=== PATIENT | female | born 1965 | race Caucasian/White ===

== ENCOUNTER 2021-09-07 14:22 | Outpatient (CLI) | payer OTHER, SELFPAY | END 2021-09-07 14:23 | disposition home or self-care (01) | PROVIDERS: PCP Family Medicine; Visit Provider Obstetrics & Gynecology | DX: N93.9 Abnormal uterine and vaginal bleeding, unspecified (principal); N85.2 Hypertrophy of uterus | CPT/HCPCS: 36415; 84443 ==

== ENCOUNTER → 2021-09-15 15:34 | Outpatient (CLI) | payer OTHER, SELFPAY ==
--- NOTE | ~2021-09-15 | US_ITS ---
EXAMINATION: US pelvic complete w TV DATE: 09/15/2021 15:57 INDICATION: Uterine hypertrophy. Abnormal uterine bleeding. Comparison:Ultrasound dated 03/03/2018 TECHNIQUE: Multiple transabdominal and endovaginal sonographic images of the pelvis performed. FINDINGS: The uterus measures 10.4 x 5 x 8.6 cm. There are multiple uterine fibroids, largest measuri ng 5.8 x 5.6 x 5.5 cm. The endometrial complex measures 6 mm. The right ovary is not visualized. Left ovary measures 2.9 x 2.8 x 2.8 cm with normal vascular flow. There is no free fluid in the pelvis. There are no abnormal masses seen on either side. IMPRESSION: 1. Enlarged fibroid uterus. Reviewed, dictated and finalized at location A. IMPRESSION: 1. Enlarged fibroid uterus.
== END ==
PROVIDERS: Visit Provider Obstetrics & Gynecology
DX: N85.2 Hypertrophy of uterus (principal); D25.9 Leiomyoma of uterus, unspecified
CPT/HCPCS: 76830; 76856

== ENCOUNTER → 2023-08-22 14:49 | Outpatient (CLI) | payer OTHER, SELFPAY ==
--- NOTE | ~2023-08-22 | US_ITS ---
EXAMINATION: US pelvic complete w TV DATE: 08/22/2023 15:21 INDICATION: Laminectomy of the uterus, unspecified TECHNIQUE: Multiple transabdominal and endovaginal sonographic images of the pelvis were obtained. COMPARISON: 09/15/2021 FINDINGS: The uterus measures 10.9 7.3 x 8.7 cm. There are multiple uterine fibroids. The largest mitzi sures 6.4 x 5.3 x 6.3 cm in the posterior uterine body. The endometrial complex measures 7 mm. The le ft ovary is not visualized however no left adnexal abnormality is seen. The right ovary measures 4.8 x 3.7 x 4.4 cm. There is normal vascular flow in the right ovary. There is no free fluid in the pelvi s. IMPRESSION: 1. Fibroid uterus. Reviewed, dictated and finalized at location A. IMPRESSION: 1. Fibroid uterus.
== END ==
PROVIDERS: PCP Obstetrics & Gynecology; Visit Provider Obstetrics & Gynecology
DX: D25.9 Leiomyoma of uterus, unspecified (principal)
CPT/HCPCS: 76830; 76856

== ENCOUNTER → 2023-12-10 10:26 | Outpatient (CLI) | payer OTHER, SELFPAY ==
--- NOTE | ~2023-12-10 | XR_ITS ---
XR thoracic spine 3V DATE: 12/10/2023 10:54 INDICATION: Mid back pain TECHNIQUE: AP, lateral, swimmer views COMPARISON: None FINDINGS: There is osteopenia. There is mild degenerative spurring of the thoracic spine. No fracture or dislocation or bone destruc tion is evident. The thoracic pedicles are intact. No paraspinal soft tissue thickening. IMPRESSION: Osteopenia and degenerative spurring Reviewed, dictated and finalized at location A. GENCY ROOM PHYSICIAN ASSISTANT
--- NOTE | ~2023-12-10 | XR_ITS ---
XR cervical spine 4-5V DATE: 12/10/2023 10:54 INDICATION: Left arm pain TECHNIQUE: AP, open-mouth, lateral and bilateral oblique views COMPARISON: None FINDINGS: There is straightening of the cervical spine. C1 and C2 are normally aligned and the odonto id process is intact. No fracture or dislocation or locked facet or prevertebral soft tissue swelling . No significant bony encroachment upon the neural foramina is noted. IMPRESSION: Straightening of the cervical spine Reviewed, dictated and finalized at location A. NT ANALYST
== END ==
PROVIDERS: PCP Chiropractor; Visit Provider Chiropractor
DX: M85.88 Other specified disorders of bone density and structure, other site (principal); M46.04 Spinal enthesopathy, thoracic region
CPT/HCPCS: 72050; 72072

== ENCOUNTER 2024-05-23 03:04 | Day surgery (SDC) | payer OTHER, SELFPAY ==
[2024-05-09 10:32] VITALS: BMI 30.8
[2024-05-23 06:24] VITALS: BP 132/78; PULSE 73; RESP 16; TEMP 36.3; O2SAT 99
[2024-05-23] MEDS: LACTATED RINGERS 1,000 ML 150 ML IV CONT (06:32)
--- NOTE | 2024-05-23 07:20 | PM.HPGS ---
History of Present Illness History of Present Illness Consent: Risks, benefits, and alternatives have been discussed and questions answered. Patient agrees to proceed with procedure. Chief complaint: neoplasm screening Narrative: Violette Milner is a 59 year old female here for first screening colonoscopy Review of Systems Review of Systems: All systems reviewed & are unremarkable except as noted in HPI and below PMFSH Past Medical History Medical History (Updated 05/23/24 @ 07:21 by Luke Sargent MD) Colon cancer screening History of miscarriage Seasonal allergies Family History Family History Father Hypertension Family history of elevated blood lipids Family history of diabetes mellitus in first degree relative Family history of coronary artery disease Diabetes mellitus Family history of cardiovascular disease Family history of Alzheimer's disease Mother Hypertension Family history of thoracic aortic aneurysm Sibling Family history of elevated blood lipids Other Family history of malignant neoplasm of breast Social History Social History (Updated 07/27/23 @ 08:57 by Augustina Madden MA) Smoking packs per day: 0.5 Smoking cigarettes per day: 10.0 Smoking status: Former smoker Tobacco type: cigarettes Second hand tobacco smoke exposure: No Smoking end date: 11/21/02 Alcohol intake: current Substance use: never Lack of Transportation: No Lack of Food: Never True Current Housing: I Have Housing Concerned About Future Housing: No Difficulty Paying Gas/Electric Bills: No Difficulty Paying for Meds: No Currently Unemployed: No Education: Master's Degree or Higher Difficulty w/ Childcare or Family Care: No Living arrangements: with family Occupation/Education: occupation Gender identity (if verbalized by the patient): Female Sexual Orientation (if Verbalized by the Patient): Straight or Heterosexual Spiritual care concerns: No Meds Home Medications and Allergies Home Medications Medication Instructions Recorded Confirmed Type albuterol sulfate 90 mcg/actuation 1 puff inhalation Q4H PRN 10/09/19 05/09/24 History aerosol inhaler (Ventolin HFA) Shortness Of Breath Or Wheezing loratadine 10 mg tablet (Claritin) 10 mg PO DAILY 07/27/23 05/09/24 History Allergies Allergy/AdvReac Type Severity Reaction Status Date / Time No Known Allergies Allergy Mild Verified 05/23/24 06:23 Vital Signs Vital Signs - 24 hr 05/23/24 06:24 Temperature 97.4 F L Pulse Rate 73 Respiratory Rate 16 Blood Pressure 132/78 Pulse Oximetry 99 Oxygen Delivery Room Air Exam Const: General: comfortable and no acute distress HENMT: Face/Nose/Sinus: Normal nares present Eyes: General: appearance normal, both eyes and all related structures Neck: Neck: no JVD Resp: Auscultation: clear to auscultation bilaterally Cardio: Rate: regular rate Rhythm: regular rhythm GI: Inspection: non-distended GI Palp: Yes Soft to palpation Skin: General skin exam: normal color Neuro: General: gait normal Speech: normal speech Extrem: General: normal to inspection Psych: Mental Status: mental status grossly normal Assessment and Plan Assessment and plan (1) Colon cancer screening: Code(s): Z12.11 - Encounter for screening for malignant neoplasm of colon Status: Acute Assessment and Plan: colonoscopy
[2024-05-23 07:46] VITALS: BP 116/74; PULSE 67; RESP 16; O2SAT 97
[2024-05-23 07:56] VITALS: BP 125/85; PULSE 67; RESP 20; O2SAT 98
[2024-05-23 08:06] VITALS: BP 138/86; PULSE 69; RESP 18; O2SAT 98
--- NOTE | 2024-05-28 14:31 | WPDANESEPPF ---
Anes - Initial Pre Proc Eval Procedure: Operation Date: 05/23/24 07:30 Proposed Procedures p Screening Colonoscopy - Luke Sargent MD Date/Time: 05/28/24 14:31 Surgeon: Luke Sargent MD Pre Op Diagnosis: neoplasm screening Patient Data Age: 59 Gender: F Height: 1.6 m Weight: 80.3 kg Last Vital Signs Temp 97.4 F L 05/23/24 06:24 Pulse 69 05/23/24 08:06 Resp 18 05/23/24 08:06 BP 138/86 05/23/24 08:06 Pulse Ox 98 05/23/24 08:06 O2 Del Method Room Air 05/23/24 08:06 Allergies Allergy/AdvReac Type Severity Reaction Status Date / Time No Known Allergies Allergy Mild Verified 05/23/24 06:23 Home Medications Medication Instructions Recorded Confirmed Type albuterol sulfate 90 mcg/actuation 1 puff inhalation Q4H PRN 10/09/19 05/09/24 History aerosol inhaler (Ventolin HFA) Shortness Of Breath Or Wheezing loratadine 10 mg tablet (Claritin) 10 mg PO DAILY 07/27/23 05/09/24 History Patient hx anesthesia problems: none Family hx anesthesia problems: none Results Review: All pre-operative results and documents have been reviewed as part of the pre-operative evaluation. [facility] Past Medical History Medical History (Updated 05/23/24 @ 07:21 by Luke Sargent MD) Colon cancer screening History of miscarriage Seasonal allergies Family History Family History Father Hypertension Family history of elevated blood lipids Family history of diabetes mellitus in first degree relative Family history of coronary artery disease Diabetes mellitus Family history of cardiovascular disease Family history of Alzheimer's disease Mother Hypertension Family history of thoracic aortic aneurysm Sibling Family history of elevated blood lipids Other Family history of malignant neoplasm of breast Social History Social History (Updated 07/27/23 @ 08:57 by Augustina Madden MA) Smoking packs per day: 0.5 Smoking cigarettes per day: 10.0 Smoking status: Former smoker Tobacco type: cigarettes Second hand tobacco smoke exposure: No Smoking end date: 11/21/02 Alcohol intake: current Substance use: never Lack of Transportation: No Lack of Food: Never True Current Housing: I Have Housing Concerned About Future Housing: No Difficulty Paying Gas/Electric Bills: No Difficulty Paying for Meds: No Currently Unemployed: No Education: Master's Degree or Higher Difficulty w/ Childcare or Family Care: No Living arrangements: with family Occupation/Education: occupation Gender identity (if verbalized by the patient): Female Sexual Orientation (if Verbalized by the Patient): Straight or Heterosexual Spiritual care concerns: No Anes - Eval Final PreProcedure Day of Procedure 05/28/24 14:31 Patient weight: normal Heart: regular rate and rhythm Lungs: clear to auscultation Airway: Mallampati scale class II Neurological: alert and oriented Last oral intake: >/= 8 hours ASA classification: II Emergent: no Anesthetic plan: proceed Anesthesia type and monitoring: general GIVS and standard monitoring Results Review: All pre-operative results and documents have been reviewed as part of the pre-operative evaluation. Informed Consent: The patient's anesthetic plan and its attendant risks and benefits were discussed with the patient/family/POA. Questions were solicited and answers provided to the satisfaction of the patient/family/POA.
== END 2024-05-23 08:18 | disposition home or self-care (01) ==
PROVIDERS: PCP Family Medicine Sports Medicine; Visit Provider Internal Medicine Gastroenterology
PROC: 0DJD8ZZ Inspection of Lower Intestinal Tract, Via Natural or Artificial Opening Endoscopic (ICD-10-PCS; CPT 45378; principal; 2024-05-23 07:30)
DX: Z12.11 Encounter for screening for malignant neoplasm of colon (principal); K64.8 Other hemorrhoids; J30.2 Other seasonal allergic rhinitis; Z79.51 Long term (current) use of inhaled steroids; Z87.891 Personal history of nicotine dependence; Z80.3 Family history of malignant neoplasm of breast; Z82.49 Family history of ischemic heart disease and other diseases of the circulatory system
CPT/HCPCS: 45378; J2704; J7120

== ENCOUNTER 2025-01-29 10:04 | Outpatient (CLI) | payer OTHER, SELFPAY ==
--- NOTE | ~2025-01-29 | DEXA_ITS ---
Bone Density Report Name: LINSEY OWEN Age: 59 Sex: Female Ethnicity: White Date of : 1965 Indication: screening for osteoporosis; asthma or emphysema; Referring Provider: DAVID MARCELO Study: Bone densitometry was performed. Exam Date: January 29, 2025 Accession number: [id number] Bone Density: Region BMD T-score Z-score Classification AP Spine(L1-L4) 0.895 -1.4 -0.1 Osteopenia Femoral Neck (Left) 0.836 -0.1 1.1 Normal Total Hip (Left) 0.959 0.1 1.0 Normal Femoral Neck (Right) 0.905 0.5 1.7 Normal Total Hip (Right) 1.051 0.9 1.7 Normal Total Hip Mean 1.005 0.5 1.4 Normal World Health Organization criteria for BMD impression classify patients as: Normal (T-score at or above -1.0), Osteopenia (T-score between -1.0 and -2.5), or Osteoporosis (T-score at or below -2.5). 10-year Fracture Risk: FRAX not reported because: Premenopausal woman Clinical Information Provided by Patient: Has used the following medications: Vitamin D, Calcium Has the following medical conditions: Asthma or Emphysema Patient maximum height was 63 Drinks caffeinated beverages Onset of menses at age 12 Premenopausal Number of children 0 Impression: The patient's bone mass is within expected range for age, gender and ethnicity. Discussion: BONE DENSITY IS WITHIN EXPECTED LIMITS FOR AGE, SEX AND RACE. Bone density is within expected limits for age, sex and race at all sites measured. The patient should follow a healthful lifestyle (good nutrition with adequate calcium and vitamin D, and appropriate weight-bearing exercise). Follow-Up: Consider repeating this study in 2 to 3 years to reassess this patient's status, or sooner if there is some new clinical indication. Reported by: OFELIA on 01/29/2025 10:43:00 AM. Reviewed, dictated and finalized at location A. K[facility]LEIG[facility]
--- OUTSIDE RECORDS SUMMARY | 2025-01-29 11:20 | XMS_ITS | Referral Summary ---
Author Organization [facility] Address [address] [place] [address] Care Team Providers Care Med Admin Name Role Phone Jacob Morgan MD Unavailable [phone] Unknown, Notinfile Primary Care Provider Unavail able Encounters Date Type Department Care Team Description 01/22/2025 Results Follow-Up [facility] Primary Care at [address] [phone] Kady Martines NP 01/07/2025 8:00 AM SHIRRING MACHINE OPERATOR AUTOMATIC - 01/07/2025 11:59 PM [facility] Hospital Encounter [facility] Breast Imaging [facility] ([facility]) [address] [place] [id number] Screening mammogram, encounter for Discharge Disposition: Discharge to home or self care from Last 3 Months Allergies No known active allergies Medications diphenhydrAMINE (BENADRYL) 25 mg capsule Take 1 tablet/capsul e (25 mg total) by mouth every 6 (six) hours as needed for itching Active albuterol HFA (PROVENTIL HFA,VENTOLIN HFA,PROAIR HFA) 90 mcg/actuation inhaler Inhale 2 puffs every 6 (six) hours as needed for wheezing 54 g 2 11/17/2022 Active cetirizine (ZyrTEC) 10 mg capsule Take 10 mg by mouth daily 06/01/2024 Active omeprazole (PriLOSEC) 20 mg capsule Take 1 capsule (20 mg total) by mouth daily for 14 days Take first thing in AM on empty stomach 14 capsule 09/06/2024 Active Active Problems Problem Noted Date Diagnosed Date Borderline high cholesterol 09/15/2022 Allergy to animal dander 09/21/2021 Overview (09/15/2022): Cat and dog. Basal cell carcinoma (BCC) of left cheek 019 Sebaceous gland hyperplasia 06/09/2016 Multiple melanocytic nevi 08/06/2015 Chronic idiopathic urticaria 08/06/2015 Assessment & Plan (03/16/2024 3:59 PM CDT): Episodic issues. Monitor. This is a chronic issue that she has had. Unclear if patient is at increased risk for recurrent episodes with warm temperature exposure. She notes the recent complaint of lymphadenopathy seems to correspond to times when she is taken showers. These may be correlating diagnosis given the lymphadenopathy she reports he is somewhat transient Mild intermittent asthma without complication Seasonal allergies 01/22/2008 Resolved Problems Problem Noted Date Diagnosed Date Resolved Date Obesity (BMI 30-39.9) 05/27/20212021 Assessment & Plan (05/27/2021 2:20 PM CDT): Obesity is unchanged. Discussed the patient's BMI. The BMI is above average. BMI management plan is completed. BMI Follow-up includes: nutrition counseling, exercise counseling and education provided. BMI 31.0-31.9,adult 05/27/2021 09/15/20 Assessment & Plan (05/27/2021 2:20 PM CDT): Obesity is unchanged. Discussed the patient's BMI. The BMI is above average. BMI management plan is completed. BMI Follow-up includes: nutrition counseling, exercise counseling and education provided. Encounter to establish care 05/27/2021 09/15/2022 Assessment & Plan (05/27/2021 6:31 PM CDT): Fasting labs entered, will notify patient of results as available Colon cancer screening 05/27/202109/15 Assessment & Plan (05/27/2021 6:31 PM CDT): Will order cologuaroseann, will notify her of results as available She declines screening cscope at this time Basal cell carcinoma of skin 01/29/2020 09/15/2022 Seborrheic keratoses 06/09/2016 022 Immunizations Immunization Administration Dates Next Due Influenza, Quadrivalent, Chayo l Culture-based MDCK, Antibiotic Free, Intramuscular 10/07/2018 Influenza, Quadrivalent, Spl it, Intramuscular 09/17/2019 Influenza, Quadrivalent, Spl it, Preservative Free, Intramuscular 09/27/2023,09/15/2022,08/17/2017 Influenza, Trivalent, IM (MDV) 09/16/2021 Influenza, Trivalent, Preser vative Free, Intramuscular 09/19/2016,10/01/2015 Novavax COVID-19 5MCG/0.5ML Vaccine 09/15/2023 Td, Not Adsorbed 02/19/2019 Social History Tobacco Use Types Packs/Day Years Used Date Smoking Tobacco: Former Cigarettes Q uit: 11/21/1984 Smokeless Tobacco: Never Tobacco Cessation:Counseling Given: Not Answered Alcohol Use Standard Drinks/Week Comments Not Currently 0 (1 standard drink = 0.6 oz pur e alcohol) AUDIT-C Answer Date Recorded Q1: How often do you have a drink containing alcohol? Never 09/06/2024 Q2: How many drinks containi ng alcohol do you have on a typical day when you are drinking? Patient does not drink Q3: How often do you have si x or more drinks on one occasion? Never 09/06/2024 PHQ-2 Answer Date Recorded PHQ-2 Total Score (If total score is 3 or more points, staff should administer the PHQ-9) 0 07/04/2024 Comments No Sex and Gender Information Value Date Recorded Sex Assigned at Not on file Legal Sex Female 12:49 AM SHIRRING MACHINE OPERATOR AUTOMATIC Gender Identity Not on file Sexual Orientation Not on file Last Filed Vital Signs Vital Sign Reading Time Taken Comments Blood Pressure 118/74 09/06/2024 11:41 AM CDT Pulse 76 09/06/2024 11:41 AM CDT Temperature 36.8 C (98.3 F) 07/04/2024 2:58 PM CDT Respiratory Rate 18 09/06/2024 11:41 AM CDT Oxygen Saturation 97% 07/04/2024 2:58 PM CDT Inhaled Oxygen Concentration - - Weight 83.3 kg (183 lb 9.6 oz) 09/06/2024 11:41 AM CDT Height 160 cm (5' 3 ) 09/06/2024 11:41 AM CDT Body Mass Index 32.52 09/06/2024 11:41 AM CDT Plan of Treatment Not on file Procedures Procedure Name Priority Date/Time Associated Diagnosis Comments SCREENING MAMMOGRAM BILATERAL W ANGEL Schedule Routine, Read Routine (OP Routine) 01/07/2025 8:22 AM SHIRRING MACHINE OPERATOR AUTOMATIC Screening mammogram, encounter for HEPATITIS C ANTIBODY Routine 11/09/2023 9:48 AM SHIRRING MACHINE OPERATOR AUTOMATIC Routine physical examination Encounter for hepatitis C screening test for low risk patient STOOL DNA COLOGUARD Routine 07/20/2021 6:20 AM CDT Encounter to establish care Colon cancer screening from Last 3 Months or Most Recently Relevant to Health Maintenance Results * Screening Mammogram Bilateral W Angel (01/07/2025 8:22 AM SHIRRING MACHINE OPERATOR AUTOMATIC) Anatomical Region Laterality Modality Breast Bilateral Mammography Narrative 01/08/2025 9:26 AM SHIRRING MACHINE OPERATOR AUTOMATIC Mammogram Technique: Bilateral Digital Breast Tomosynthesis, Bilateral C-view 2D Screening mammogram. Views obtained: bilateral craniocaudal and bilateral mediolateral oblique. Computer Aided Detection was performed. Mammogram Findings: The present examination has been compared to prior imaging studies performed at [facility] on 10/29/2021, 12/02/2022 and 12/23/2023. There are scattered areas of fibroglandular density. There is no suspicious abnormality in either breast. Impression: There is no mammographic evidence of malignancy. Annual screening mammography is recommended. OVERALL FINAL ASSESSMENT: BI-RADS CATEGORY 1: Negative. Procedure Note Heide Bernstein MD - 01/08/2025 Mammogram Technique: Bilateral Digital Breast Tomosynthesis, Bilateral C-view 2D Screening mammogram. Views obtained: bilateral craniocaudal and bilateral mediolateral oblique. Computer Aided Detection was performed. Mammogram Findings: The present examination has been compared to prior imaging studies performed at [facility] on 10/29/2021, 12/02/2022 and 12/23/2023. There are scattered areas of fibroglandular density. There is no suspicious abnormality in either breast. Impression: There is no mammographic evidence of malignancy. Annual screening mammography is recommended. OVERALL FINAL ASSESSMENT: BI-RADS CATEGORY 1: Negative. Self Screening Mammogram IMG MAMMO PROCEDURES Fi nal Result * Hepatitis C antibody Blood (11/09/2023 9:48 AM SHIRRING MACHINE OPERATOR AUTOMATIC) Hep C Ab Nonreactive Nonreactive [facility] Comment: Interpretive Data Nonreactive: Antibodies to HCV not detected. Does NOT exclude the possibility of recent exposure to HCV. Equivocal: Equivocal for HCV antibodies. Supplemental molecular testing will be automatically performed to determine infection status in accordance with current CDC screening recommendations. Reactive: Positive for HCV antibodies. This may represent current or past HCV infection. Supplemental molecular testing will be automatically performed to determine current infection status in accordance with current CDC screening recommendations. Interpretive data was last revised on 2020. Blood 11/09/2023 9:48 AM SHIRRING MACHINE OPERATOR AUTOMATIC 11/09/2023 2:39 PM SHIRRING MACHINE OPERATOR AUTOMATIC Katelyn Gonzalez MD LAB MICROBIOLOGY - GEN ERAL ORDERABLES Final Result [facility] [address] [place] [address] * Stool DNA - Cologuard (07/20/2021 6:20 AM CDT) Stool DNA - Cologuard Negative Negative [facility] (CLIA #:[id number]) Comment: NEGATIVE TEST RESULT. A negative Cologuard result indicates a low likelihood that a colorectal cancer (CRC) or advanced adenoma (adenomatous polyps with more advanced pre-malignant features) is present. The chance that a person with a negative Cologuard test has a colorectal cancer is less than 1 in 1500 (negative predictive value >99.9%) or has an advanced adenoma is less than 5.3% (negative predictive value 94.7%). These data are based on a prospective cross-sectional study of 10,000 individuals at average risk for colorectal cancer who were screened with both Cologuard and colonoscopy. (Brianna Lau al, N Engl J Med 2014;370(14):3313-9502) The normal value (reference range) for this assay is negative. COLOGUARD RE-SCREENING RECOMMENDATION: Periodic colorectal cancer screening is an important part of preventive healthcare for asymptomatic individuals at average risk for colorectal cancer. Following a negative Cologuard result, the [place] [employer] and U.S. Multi-Society Task Force screening guidelines recommend a Cologuard re-screening interval of 3 years. References: [place] [employer] Guideline for Colorectal Cancer Screening: https://www.cancer.org/cancer/wdifm-jwojeb-sebltf/boqqknhem-brqrtcqaw-egfpcbl/ac s-rec ommendations.html.; Haseeb DK, Vilma KNUTSON, Cristal JacksonK, Colorectal Cancer Screening: Recommendations for Physicians and Patients from the U.S. Multi-Society Task Force on Colorectal Cancer Screening , Am J Gastroenterology 2017; 112:6819-6060. TEST DESCRIPTION: Composite algorithmic analysis of stool DNA-biomarkers with hemoglobin immunoassay. Quantitative values of individual biomarkers are not reportable and are not associated with individual biomarker result reference ranges. Cologuard is intended for colorectal cancer screening of adults of either sex, 45 years or older, who are at average-risk for colorectal cancer (CRC). Cologuard has been approved for use by the U.S. FDA. The performance of Cologuard was established in a cross sectional study of average-risk adults aged 50-84. Cologuard performance in patients ages 45 to 49 years was estimated by sub-group analysis of near-age groups. Colonoscopies performed for a positive result may find as the most clinically significant lesion: colorectal cancer [4.0%], advanced adenoma (including sessile serrated polyps greater than or equal to 1cm diameter) [20%] or non- advanced adenoma [31%]; or no colorectal neoplasia [45%]. These estimates are derived from a prospective cross-sectional screening study of 10,000 individuals at average risk for colorectal cancer who were screened with both Cologuard and colonoscopy. (Brianna Alatorre et al, N Engl J Med 2014;370(14):3859-2666.) Cologuard may produce a false negative or false positive result (no colorectal cancer or precancerous polyp present at colonoscopy follow up). A negative Cologuard test result does not guarantee the absence of CRC or advanced adenoma (pre-cancer). The current Cologuard screening interval is every 3 years. ([place] [employer] and U.S. Multi-Society Task Force). Cologuard performance data in a 10,000 patient pivotal study using colonoscopy as the reference method can be accessed at the following location: www.[employer]Collibra/results. Additional description of the Cologuard test process, warnings and precautions can be found at www.cologuard.Collibra. Stool 07/20/2021 6:20 AM CDT 07/21/2021 7:04 PM CDT Mansi BORJA LAB BODY FLUIDS AND STOOLS ORDERABLES Final Result [facility] (CLIA #:[id number]) [place] [address] from Last 3 Months or Most Recently Relevant to Health Maintenance Insurance [facility]eds [facility] ActualMeds [facility] [id number] [facility] [id number] Care Teams Med Admin Relationship Specialty Start Date End Date Unknown, Notinfile PCP - General 09/06/24 Jacob Morgan MD [address] [facility] [address] [facility] [address] [place] [address] Referring Physician Obstetrics and Gynecology 12/02/22
--- OUTSIDE RECORDS SUMMARY | 2025-01-29 11:20 | XMS_ITS | Clinical Summary ---
Author Organization [facility] Address [address] [place] [address] Care Team Providers Care Creel Hand Name Role Phone Jerrell Harden MD Primary Care Provider [phone] Social History Tobacco Use Types Packs/Day Years Used Date Smoking Tobacco: Never Assessed Comments Unknown Sex and Gender Information Value Date Recorded Sex Assigned at Not on file Legal Sex Female 7:46 PM CDT Gender Identity Not on file Sexual Orientation Not on file Last Filed Vital Signs Vital Sign Reading Time Taken Comments Blood Pressure 132/80 08/17/2017 11:49 AM CDT Pulse 69 08/17/2017 11:49 AM CDT Temperature - - Respiratory Rate - - Oxygen Saturation - - Inhaled Oxygen Concentration - - Weight 88.5 kg (195 lb) 08/17/2017 11:49 AM CDT Height 157.5 cm (5' 2 ) 08/17/2017 11:49 AM CDT Body Mass Index 35.67 08/17/2017 11:49 AM CDT Plan of Treatment Health Maintenance Due Date Last Done Comments Cervical Cancer Screening Pa p Smear (Age 30 to 64) Every 3 Years 1967 Colorectal Cancer Screening Colonoscopy (10 Years) 1967 Annual Physical 1970 Hepatitis C 1985 DTaP, Tdap and Td Vaccines ( 1 - Tdap) 1986 Hepatitis B Vaccines (1 of 3 - 19+ 3-dose series) 1986 Cervical Cancer Screening Pa p with HPV Testing (Age 30 to 64) Every 5 Years 1997 Cervical Cancer Screening wi th HPV 1997 Mammogram Screening 2007 Zoster Vaccines (1 of 2) 2017 COVID-19 Vaccine (1 - 2024-2 5 season) 2024 Influenza Adult (#1) 2024 08/17/2017, 08/21/2014, 08/28/2013 Meningococcal B Vaccine Aged Out No l onger eligible based on patient's age to complete this topic Meningococcal Vaccine Aged Out No brent marbella eligible based on patient's age to complete this topic Pneumococcal Vaccine: Pediatrics (0 to 5 Years) and At-Risk Patients (6 to 64 Years) Aged Out No longer eligible b ased on patient's age to complete this topic RSV Immunizations Under 20 Months Aged Out No longer eligible b ased on patient's age to complete this topic Care Teams Creel Hand Relationship Specialty Start Date End Date Jerrell Harden MD [address] [place] [address] PCP - General 08/28/13
--- OUTSIDE RECORDS SUMMARY | 2025-01-29 11:20 | XMS_ITS | Referral Summary ---
Author Organization [facility] Address [address] [place] [address] Care Team Providers Care Digital Forensics Examiner Name Role Phone Unavailable Primary Care Provider Unavailabl e Source Comments [facility],non-owned Affiliates and Associated Physician Practices is amultiple site organization consisting of ambulatory clinics and hospital sitesin [place], [place], [place] and [place]. This disclosure is being madepursuant to the Care Everywhere program and may not contain all information available regarding this patient. Last updated 18.[facility] [employer] Social History Tobacco Use Types Packs/Day Years Used Date Smoking Tobacco: Never Assessed Sex and Gender Information Value Date Recorded Sex Assigned at Not on file Gender Identity Not on file Sexual Orientation Not on file Plan of Treatment Not on file Procedures Procedure Name Priority Date/Time Associated Diagnosis Comments COLONOSCOPY 05/23/2024 from Last 3 Months or Most Recently Relevant to Health Maintenance Results * COLONOSCOPY (05/23/2024) 05/23/2024 Narrative 05/23/2024 Ordered by an unspecified provider. Scanned Document SCANNING ONLY from Last 3 Months or Most Recently Relevant to Health Maintenance
--- OUTSIDE RECORDS SUMMARY | 2025-01-29 11:20 | XMS_ITS ---
Author Organization 1 OF Aditya dennison [facility] Address [address] [place] [address] Care Team Providers Care Soccer Referee Name Role Phone Caitlyn Briones Primary Care Provider Anita Swain Unavailable [phone] REASON FOR VISIT Orthotic f/u Encounters Encounter Location Date Provider Diagnosis 1 OF [facility] [address] [place] [address] 01/17/2025 Anita Eddy Plan Of Treatment Next Appt Details Provider Name:Anita Eddy, 01/31/2025 08:10:00 AM, [address], [place], [address], Progress Notes * Violette OWEN GDOB:[birth year] (59 yo F)Acc No.[id number]:01/17/2025 Progress Notes Patient: Violette PALOMINO Provider: Laz Eddy DPM :1965 A ge:59 Y S ex:Female Date:01/17/2025 Address:[address] [place], [place] [address] Pcp:Caitlyn Briones Subjective: * Chief Complaints: * 1 . Orthotic f/u. * HPI: Nasrin Allison assisting with visit:: Chart Prep Lala odonnell HPI/Rooming: Lala tilley reason for visit:: Follow-up: [age] y/o female RTO for f/u of Orthotic modification for her p lantar fasciitis pain. At last visit, custom foot orthoses were fitted to the patient's feet in both NWB and WB stance, with necessary adjustments made. Bindu santiago she reports. * Medical History: Objective: * Vitals: * Examination: G eneral Examination: Constitutional / Appearance: N o acute distress , Well nourished, Appropriate personal hygiene. Mental status: C ooperative, Oriented to person, place and time, Mood and affect: normal, Judgement and intellect: normal with appropriate response to questions. Shoes today: X XXX. Exam unchanged from prior visit: w ith no significant changes in appearance or condition of feet . Assessment: Plan: * Treatment: * Images: * Electronic signature of Emilie Eddy DPM on 01/29/2025 at 11:20 AM CDT Sign off status: Pending * Provider: Laz Eddy DPM Date: 01/17/2025 Generated for Rachid Carl/Madai on: 01/29/2025 11:20 AM CDT History and Physical Notes * HPI (History of Present Illness) Category Sub-Category Detail Notes Category Not es Primary reason for visit: Follow-up: 59 y/o female RTO for f/u of Orthotic modification for her plantar fasciitis pain. At last visit, custom foot orthoses were fitted to the patient's feet in both NWB and WB stance, with necessary adjustments made. Today she reports MA assisting with visit: HPI/Rooming: Irshan [facility] Examination Category Sub-Category Detail Notes Category Not es General Examination Mental status: Cooperative, Oriented to person, place and time, Mood and affect: normal, Judgement and intellect: normal with appropriate response to questions Shoes today: XXXX Exam unchanged from prior visit: with no significant changes in appearance or condition of feet Constitutional / Appearance: No acute di stress , Well nourished, Appropriate personal hygiene
--- OUTSIDE RECORDS SUMMARY | 2025-01-29 11:20 | XMS_ITS | Clinical Summary ---
Author Organization [facility] Address [address] [place] [address] Care Team Providers Care Artificial Stone Applicator Name Role Phone Unavailable Primary Care Provider Unavailabl e Source Comments [facility],non-owned Affiliates and Associated Physician Practices is amultiple site organization consisting of ambulatory clinics and hospital sitesin [place], [place], [place] and [place]. This disclosure is being madepursuant to the Care Everywhere program and may not contain all information available regarding this patient. Last updated 18.[facility] [employer] Social History Tobacco Use Types Packs/Day Years Used Date Smoking Tobacco: Never Assessed Sex and Gender Information Value Date Recorded Sex Assigned at Not on file Gender Identity Not on file Sexual Orientation Not on file Plan of Treatment Health Maintenance Due Date Last Done Comments COLOGUARD (AGES 45-75) - COL ON CA SCREENING 1967 CT COLONOGRAPHY - COLON CA SCREENING 1967 FIT - COLON CA SCREENING 1967 FLEX SIG - COLON CA SCREENING 1967 LIPID TESTING 1967 MAMMOGRAM 1967 PAP SMEAR 1967 HIV SCREENING 1982 HEPATITIS C SCREENING 02/06/1985 DTAP/TDAP/TD VACCINES (1 - Tdap) 1986 HEPATITIS B VACCINE (1 of 3 - 19+ 3-dose series) 1986 PNEUMOCOCCAL VACCINE 50+ (1 of 1 - PCV) 2017 ZOSTER VACCINE (1 of 2) 2017 COVID-19 VACCINE ( - 2023-2 5 season) 2024 INFLUENZA VACCINE (#1) 2024 DEPRESSION SCREENING 11/21/2024 COLON MONITORING 05/23/2034 05/23/2024 COLONOSCOPY - COLON CA SCREENING 05/23/2034 05/23/20 Colorectal Cancer Screening 05/23/2034 HIB VACCINE Aged Out No longer eligi ble based on patient's age to complete this topic HPV VACCINE Aged Out No longer eligi ble based on patient's age to complete this topic MENINGOCOCCAL (Group B) VACCINE Aged Out No longer eligible based on patient's age to complete this topic MENINGOCOCCAL VACCINE Aged Out No brent marbella eligible based on patient's age to complete this topic PNEUMOCOCCAL VACCINE Aged Out No long er eligible based on patient's age to complete this topic Procedures Procedure Name Priority Date/Time Associated Diagnosis Comments COLONOSCOPY 05/23/2024 from Last 3 Months or Most Recently Relevant to Health Maintenance Results * COLONOSCOPY (05/23/2024) 05/23/2024 Narrative 05/23/2024 Ordered by an unspecified provider. Scanned Document SCANNING ONLY from Last 3 Months or Most Recently Relevant to Health Maintenance
--- OUTSIDE RECORDS SUMMARY | 2025-01-29 11:20 | XMS_ITS | Encounter Summary ---
Author Organization [facility] Healthcare Address [address] [place] [address] Care Team Providers Care Contract Attorney Name Role Phone Jacob Morgan MD Unavailable [phone] Unknown, Notinfile Primary Care Provider Unavail able Encounter Details Date Type Department Care Team (Late st Contact Info) Description 01/22/2025 Results Follow-Up [facility] Primary Care at [place] [address] [place] [address] Kady Martines, SAPPHIRE [address] [facility] [address] [place] [address] Social History Tobacco Use Types Packs/Day Years Used Date Smoking Tobacco: Former Cigarettes Q uit: 11/21/1984 Smokeless Tobacco: Never Alcohol Use Standard Drinks/Week Comments Not Currently [...] on file Legal Sex 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
--- OUTSIDE RECORDS SUMMARY | 2025-01-29 11:20 | XMS_ITS | Patient Health Record ---
Author Organization 1 OF Aditya dennison [facility] Address [address] [address] Care Team Providers Care Rotary Drill Operator Name Role Phone Caitlyn Briones Primary Care Provider Anita Swain Unavailable [phone] Allergies No Known Allergies Reason For Referral No Information Medications Medication SIG (Take, Route, Frequency, Duration) Notes Start Date End Date Status ZyrTEC Active Naproxen Active Multivitamin Active Social History Tobacco Use: Social History Observation Description Date Details (start date - stop date) Former Smoker NA - NA Tobacco Control (Standard) Question Answer Notes Tobacco use: Former smoker How long has it been since you last smoked? Grea ter than 10 years Problems Problem Type SNOMED Code ICD Code Onset Dates Problem Status W/U Status Risk Notes Problem [id number] Plantar fasciitis, left (M72.2) Active confirmed Vital Signs Height 63 in 12/06/2024 Weight 179 lbs 12/06/2024 BMI 31.7 kg/m2 12/06/2024 Encounters Encounter Location Date Provider Diagnosis 1 OF Aditya Hein [facility] [address] [address] 11/12/2024 Anita Eddy Plantar fasciitis, left M72.2 ; Stress reaction of left foot, initial encounter M84.375A and Left foot pain M79.672 1 OF Aditya Hein [facility] [address] [place] [address] 11/22/2024 Anita Eddy Plantar fasciitis, left M72.2 and Left foot pain M79.672 1 OF Aditya Hein [facility] [address] [employer] [address] 12/06/2024 Anita Eddy Plantar fasciitis, left M72.2 ; Left foot pain M79.672 and Presence of orthotic device Z97.8 1 OF Aditya Hein [facility] [address] [place] [address] 01/03/2025 Anita Eddy Plantar fasciitis, left M72.2 and Left foot pain M79.672 1 OF Aditya Hein [facility] [address] [place] [address] 11/12/2024 Anita Eddy 1 OF Aditya Hein [facility] [address] [place] [address] 11/12/2024 Anita Eddy Assessments Encounter Date Diagnosis (ICD Code) Assessment Notes Treatment Notes Treatment Clinical Notes Section Notes 11/12/2024 Plantar fasciitis, left (ICD-10 - M72.2) Patient visit today included a review of medical history, review of systems, physical exam and discussion of exam findings, test results, and discussed the nature and etiology of plantar fasciitis as well as treatment options. I explained to the patient that she may also be having a stress reaction of the left calcaneus. I discussed the importance of wearing good supportive shoes and avoiding ambulation in slippers, flip flops or walking barefoot and I encouraged the patient to wear a good quality athletic sneaker whenever possible. Discussed treatment options today including stretching exercises, icing, Rx NSAIDs, prefab orthotics, custom orthotics, steroid injections, physical therapy, use of a night splint, immobilization. Dispensed literature regarding plantar fasciitis. She was given stretching exercises to perform. She was given a prescription for meloxicam. She was dispensed a Cam Walker boot and was advised to wear this as much as possible when weightbearing. She will return for custom orthotic fabrication. She can call with any issues prior to her next visit. 11/12/2024 Stress reaction of left foot, initial encounter (ICD-10 - M84.375A) 11/22/2024 Left foot pain (ICD-10 - M79.672) 11/22/2024 Plantar fasciitis, left (ICD-10 - M72.2) 12/06/2024 Left foot pain (ICD-10 - M79.672) 12/06/2024 Plantar fasciitis, left (ICD-10 - M72.2) Evaluation today included a review of medical history, review of systems, discussion of exam findings, and review of diagnoses and treatment options. Her symptoms are improving. I did explain that it will take time for all of her inflammation to resolve. I recommended that she continue doing the stretching exercises routinely. She can ice the foot as needed for pain. She can take naproxen as needed. She was advised to try to wear the Cam Walker boot when she can, to decrease pressure to the heel. Her custom orthotics were evaluated. A metatarsal pad was added. She was scheduled to have a second pair of orthotics fabricated. She can call with any issues prior to her next visit. 01/03/2025 Plantar fasciitis, left (ICD-10 - M72.2) 11/12/2024 Left foot pain (ICD-10 - M79.672) 12/06/2024 Presence of orthotic device (ICD-10 - Z97.8) 01/03/2025 Left foot pain (ICD-10 - M79.672) Plan Of Treatment Next Appt Details Provider Name:Anita Eddy, 01/31/2025 08:10:00 AM, [address], [place], [address], Insurance Providers Payer Name Payer Address Payer Phone Subscriber Number Group Number Insured Name Patient Relationship to Insured Coverage Start Date Coverage End Date [employer] [address] [place], [place] [id number] Violette Milner Self - patient is the insured Medical (General) History Medical History History ICD Code asthma migraine headaches
--- OUTSIDE RECORDS SUMMARY | 2025-01-29 11:20 | XMS_ITS | Patient Health Summary ---
Author Organization [facility] Address [address] [place] [address] Care Team Providers Care Vp Digital Marketing Social Media And Crm Name Role Phone Unavailable Primary Care Provider Unavailabl e Note from [facility],non-owned Affiliates and Associated Physician Practices is amultiple site organization consisting of ambulatory clinics and hospital sitesin [place], [place], [place] and [place]. This disclosure is being madepursuant to the Care Everywhere program and may not contain all information available regarding this patient. Last updated 18.[facility] [employer] Social History Tobacco Use Types Packs/Day Years Used Date Smoking Tobacco: Never Assessed Sex and Gender Information Value Date Recorded Sex Assigned at Not on file Gender Identity Not on file Sexual Orientation Not on file Procedures * COLONOSCOPY(Performed 05/23/2024) Results * COLONOSCOPY (05/23/2024) 05/23/2024 Narrative 05/23/2024 Ordered by an unspecified provider. Scanned Document SCANNING ONLY
--- OUTSIDE RECORDS SUMMARY | 2025-01-29 11:20 | XMS_ITS ---
Author Organization 1 OF [facility] Address [address] [place] [address] Care Team Providers Care Hand Pattern Marker Name Role Phone Caitlyn Briones Primary Care Provider UnavailAnita Almeida Unavailable [phone] REASON FOR VISIT Orthotic f/u Encounters Encounter Location Date Provider Diagnosis 1 OF [facility] [address] [place] [address] 01/02/2025 Anita Eddy Plan Of Treatment Next Appt Details Provider Name:Anita Eddy, 01/31/2025 08:10:00 AM, [address], [place], [address], Progress Notes * Violette OWEN GDOB:[birth year] (59 yo F)Acc No.[id number]:01/02/2025 Progress Notes Patient: Violette PALOMINO Provider: Laz Eddy DPM :1965 A ge:59 Y S ex:Female Date:01/02/2025 Address:[address] [place], [place] [address] Pcp:Caitlyn Briones Subjective: * Chief Complaints: * 1 . Orthotic f/u. * Medical History: Objective: * Vitals: Assessment: Plan: * Treatment: * Images: * Electronic signature of Emilie Eddy DPM on 01/29/2025 at 11:20 AM CDT Sign off status: Pending * Provider: Laz Eddy DPM Date: 0 01/02/2025 Generated for Rachid san/Faxing/eTransmitting on: 0 01/29/2025 11:20 AM CDT
--- OUTSIDE RECORDS SUMMARY | 2025-01-29 11:20 | XMS_ITS ---
Author Organization 1 OF Aditya dennison [facility] Address [address] [place] [address] Care Team Providers Care Control Director Name Role Phone Caitlyn Briones Primary Care Provider AdenAnita Almeida Unavailable [phone] REASON FOR VISIT Orthotic FABRICATE Encounters Encounter Location Date Provider Diagnosis 1 OF Aditya Hein [facility] [address] [place] [address] 01/03/2025 Anita Armentaa Plantar fasciitis, left M72.2 and Left foot pain M79.672 Assessments Encounter Date Diagnosis (ICD Code) Assessment Notes Treatment Notes Treatment Clinical Notes Section Notes 01/03/2025 Plantar fasciitis, left (ICD-10 - M72.2) 01/03/2025 Left foot pain (ICD-10 - M79.672) Plan Of Treatment Next Appt Details Follow Up: 2 Weeks, Reason: Provider Name:Anita Eddy, 01/31/2025 08:10:00 AM, [address], [place], [address], Procedure Notes * Category Sub-Category Detail Notes DME: Custom foot orthotics: (Charges submitted to insurance), Recommended and prescribed custom orthotics to stabilize foot structure, reduce stress on joints, relieve pain and improve foot function. Patient given no guarantees regarding effectiveness or relief obtained from custom orthotics. Patient agreed to proceed. , Orthotic fabrication: a negative impression of the patient's feet was obtained and a positive mold of the patient's feet was then created. The custom foot orthotic was then fabricated and finished according to the doctor's prescription. The custom foot orthoses were fitted to the patient's feet in both NWB and WB stance and any adjustments performed as necessary to insure appropriate contour of the orthotic device to each foot and the patient reported satisfaction with initial fit., Finishing of the custom orthotics performed by orthotic tech. The orthotics were fitted to the patients shoes and patient reported satisfaction with fit. Progress Notes * Violette OWEN GDOB:[birth year] (59 yo F)Acc No.[id number]:01/03/2025 Progress Notes Patient: Violette PALOMINO Provider: Laz Eddy DPM :1965 A ge:59 Y S ex:Female Date:01/03/2025 Address:[address] [place], [place] [address] Pcp:Caitlyn Briones Subjective: * Chief Complaints: * O rthotic FABRICATE * HPI: M A assisting with visit:: Orthotic Fabrication / Modification L bro. P rimary reason for visit:: Patient presents for custom orthotic fabrication. See provider progress note for details regarding order / Rx. Charges for orthotics will be submitted to insurance and patient is aware of responsibility for any coninsurance, copay or deductible associated with custom orthotics. * Medical History: * Medications: Objective: * Vitals: * Examination: G eneral Examination: F itting of durable medical equipment performed by BEAN. No exam performed other than that required as part of the fitting process. Assessment: * Assessment: 1. P lantar fasciitis, left - M72.2 (Primary) 2 . L eft foot pain - M79.672? Plan: * Treatment: * Procedures: D ME:: Custom foot orthotics: ( Charges submitted to insurance), Recommended and prescribed custom orthotics to stabilize foot structure, reduce stress on joints, relieve pain and improve foot function. Patient given no guarantees regarding effectiveness or relief obtained from custom orthotics. Patient agreed to proceed. , Orthotic fabrication: a negative impression of the patient's feet was obtained and a positive mold of the patient's feet was then created. The custom foot orthotic was then fabricated and finished according to the doctor's prescription. The custom foot orthoses were fitted to the patient's feet in both NWB and WB stance and any adjustments performed as necessary to insure appropriate contour of the orthotic device to each foot and the patient reported satisfaction with initial fit., Finishing of the custom orthotics performed by orthotic tech. The orthotics were fitted to the patients shoes and patient reported satisfaction with fit. . * Procedure Codes: L 3000 FT INSRT MOLD UCB TYPE BERKLY SHELL, Modifiers: LT L3000 FT INSRT MOLD UCB TYPE BERKLY SHELL, Modifiers: RT S0395 (negative impression of foot), Units: 2.00 , Modifiers: LT , RT * Follow Up: 2 Weeks * Images: * PROJECT MANAGER Sign off status: Completed true * Provider: Laz Eddy DPM Date: 01/03/2025 Generated for Rachdi san/[place]mond/Madai on: 0 01/29/2025 11:20 AM CDT History and Physical Notes * HPI (History of Present Illness) Category Sub-Category Detail Notes Category Not es Primary reason for visit: Patient presents for custom orthotic fabrication. See provider progress note for details regarding order / Rx. Charges for orthotics will be submitted to insurance and patient is aware of responsibility for any coninsurance, copay or deductible associated with custom orthotics. MA assisting with visit: Orthotic Fabrication / Modification Nelsy Examination Category Sub-Category Detail Notes Category Not es General Examination Fitting of durable medical equipment performed by BEAN. No exam performed other than that required as part of the fitting process.
--- OUTSIDE RECORDS SUMMARY | 2025-01-29 11:20 | XMS_ITS | Clinical Summary ---
Author Organization [facility] Address [address] [place] [address] Care Team Providers Care Bone Worker Name Role Phone Jacob Morgan MD Unavailable [phone] Unknown, Notinfile Primary Care Provider Unavail able Allergies No known active allergies Medications diphenhydrAMINE [...] Plan (05/27/2021 6:31 PM CDT): Will order cologuard, will notify her of results as available She declines screening cscope at this time Basal cell carcinoma of skin 01/29/2020 09/15/2022 Seborrheic keratoses 06/09/2016 022 Encounters Date Type Department Care Team Description 01/22/2025 Results Follow-Up [facility] Primary Care at [address] [id number] Kady Martines NP 01/07/2025 8:00 AM INTEGRATION LEAD - 01/07/2025 11:59 PM INTEGRATION LEAD Hospital Encounter [facility] Breast [facility] ([facility]) [address] [place] [id number] Screening mammogram, encounter for Discharge Disposition: Discharge to home or self care from Last 3 Months Immunizations Immunization Administration Dates Next Due Influenza, Quadrivalent, Chayo l Culture-based MDCK, Antibiotic Free, Intramuscular 10/07/2018 Influenza, Quadrivalent, Spl it, Intramuscular 09/17/2019 Influenza, Quadrivalent, Spl it, Preservative Free, Intramuscular 09/27/2023,09/15/2022,08/17/2017 Influenza, Trivalent, IM (MDV) 09/16/2021 Influenza, Trivalent, Preser vative Free, Intramuscular 09/19/2016,10/01/2015 Novavax COVID-19 5MCG/0.5ML Vaccine 09/15/2023 Td, Not Adsorbed 02/19/2019 Surgical History Surgery Date Site/Laterality Comments MYOMECTOMY Medical History Medical History Date Comments Hx Other Medical Fibroid tumor r emoval 2001 Hx Other Medical uterine resecti on 2001 Asthma Asthma Allergy Hives Seborrheic keratoses 06/09/2016 Basal cell carcinoma of skin 01/29/2020 Allergy to animal dander 09/21/2021 Cat and dog. Migraines triggered by foods Family History Medical History Relation Name Comments Diabetes Father Ronnie Heart attack Father Ronnie Heart disease Father Ronnie Aortic aneurysm Mother Lise abdominal. w as former smoker Hypertension Mother Lise Diabetes Other 1 Family history of Diabetes mellitus; Heart disease Other 2 Family history of Heart problems; Relation Name Status Comments Father Ronnie Mother Lise Other 1 Other 2 Social History Tobacco Use Types Packs/Day Years [...] on file Legal Sex Female 12:49 AM INTEGRATION LEAD Gender Identity Not on file Sexual Orientation Not on file Obstetrics History Last Filed Vital Signs Vital Sign Reading [...] 09/06/2024 11:41 AM CDT Plan of Treatment Health Maintenance Due Date Last Done Comments Cervical Cancer Screening 1965 Hepatitis B Screening 1985 Pneumococcal vaccine <65 (1 of 2 - PCV) 1986 Zoster Vaccine (1 of 2) 2017 DTaP/Tdap/Td Vaccine (1 - Tdap) 02/20/2019 9 Osteoporosis Screening-Bone Density Scan 05/25/2024 05/25/2022 Colon Cancer Screening-DNA Stool 07/20/2024 07/20/20 21 Covid-19 Vaccine (2023-2 5 season) 2024 09/15/2023, 08/28/2022, 04/16/2022, Additional history exists Influenza Vaccine (#1) 2024 , 09/15/2022, 09/16/2021, Additional history exists Regular Well Visit/Exam 18-64 09/27/2024 09/27/2023 Depression Screening 07/04/2025 07/04/2024, 09/27/2023, 09/15/2022, Additional history exists Breast Cancer Screening-Mammogram 01/07/2026 01/07/2025, 12/23/2023, 12/02/2022, Additional history exists Colon Cancer Screening-FIT Discontinued 07/20/2021 Hepatitis C Screening Completed 11/09/2023 Procedures Procedure Name Priority Date/Time Associated Diagnosis Comments SCREENING MAMMOGRAM BILATERAL W ANGEL Schedule Routine, Read Routine (OP Routine) 01/07/2025 8:22 AM INTEGRATION LEAD Screening mammogram, encounter for HEPATITIS C ANTIBODY Routine 11/09/2023 9:48 AM INTEGRATION LEAD Routine physical examination Encounter for hepatitis C screening test for low risk patient STOOL DNA COLOGUARD Routine 07/20/2021 6:20 AM CDT Encounter to establish care Colon cancer screening from Last 3 Months or Most Recently Relevant to Health Maintenance Results * Screening Mammogram Bilateral W Angel (01/07/2025 8:22 AM INTEGRATION LEAD) Anatomical Region Laterality Modality Breast Bilateral Mammography Narrative 01/08/2025 9:26 AM INTEGRATION LEAD Mammogram Technique: Bilateral Digital Breast Tomosynthesis, Bilateral C-view 2D Screening mammogram. Views obtained: bilateral craniocaudal and bilateral mediolateral oblique. Computer Aided Detection was performed. Mammogram Findings: The present examination has been compared to prior imaging studies performed at [facility] on 10/29/2021, 12/02/2022 and 12/23/2023. There are [...] compared to prior imaging studies performed at [facility] on 10/29/2021, 12/02/2022 and 12/23/2023. There are scattered areas of fibroglandular density. There is no suspicious abnormality in either breast. Impression: There is no mammographic evidence of malignancy. Annual screening mammography is recommended. OVERALL FINAL ASSESSMENT: BI-RADS CATEGORY 1: Negative. Self Screening Mammogram IMG MAMMO PROCEDURES Fi nal Result * Hepatitis C antibody Blood (11/09/2023 9:48 AM INTEGRATION LEAD) Pathologist [facility] Hep C Ab Nonreactive Nonreactive SANDY TAVARES [...] revised on 2020. Blood 11/09/2023 9:48 AM INTEGRATION LEAD 11/09/2023 2:39 PM INTEGRATION LEAD Katelyn Gonzalez MD LAB MICROBIOLOGY - GEN ERAL ORDERABLES Final Result SANDY TAVARES [id number] [facility] [place] [address] * Stool DNA - Cologuard (07/20/2021 6:20 AM CDT) Pathologist [facility] Stool DNA - Cologuard Negative Negative [employer] (CLIA #:[id number]) Comment: NEGATIVE TEST RESULT. A negative Cologuard [...] (Brianna Lau al, N Engl J Med 2014;370(14):9819-6977) The normal value (reference range) for this assay is negative. COLOGUARD RE-SCREENING RECOMMENDATION: Periodic colorectal cancer screening is an important part of preventive healthcare for asymptomatic individuals at average risk for colorectal cancer. Following a negative Cologuard result, the [place] [employer] and U.S. Multi-Society Task Force screening guidelines recommend a Cologuard re-screening interval of 3 years. References: [place] [employer] Guideline for Colorectal Cancer Screening: https://www.cancer.org/cancer/uhygf-efjhiw-lhhcre/flpylpdhk-ikovzfmwe-cnxwnmd/ac s-rec ommendations.html.; Haseeb DK, Vilma KNUTSON, Cristal JacksonK, Colorectal Cancer Screening: Recommendations for Physicians and Patients from the U.S. Multi-Society Task Force on Colorectal Cancer Screening , Am J Gastroenterology 2017; 112:4332-9415. TEST DESCRIPTION: Composite algorithmic analysis of stool [...] screened with both Cologuard and colonoscopy. (Brianna Zayas, N Engl J Med 2014;370(14):5542-5937.) Cologuard may produce a false negative or false positive result (no colorectal cancer or precancerous polyp present at colonoscopy follow up). A negative Cologuard test result does not guarantee the absence of CRC or advanced adenoma (pre-cancer). The current Cologuard screening interval is every 3 years. ([place] [employer] and U.S. Multi-Society Task Force). Cologuard performance data in a 10,000 patient pivotal study using colonoscopy as the reference method can be accessed at the following location: www.[employer]/results. Additional description of the Cologuard test process, warnings and precautions can be found at www.cologuard.com. Stool 07/20/2021 6:20 AM CDT 07/21/2021 7:04 PM CDT Mansi BORJA LAB BODY FLUIDS AND STOOLS ORDERABLES Final Result [employer] (CLIA #:[id number]) [place] [address] from Last 3 Months or Most Recently Relevant to Health Maintenance Insurance [employer] [facility] [id number] [facility] [id number] Care Teams Bone Worker Relationship Specialty Start Date End Date Unknown, Notinfile PCP - General 09/06/24 Jacob Mrogan MD [id number] [facility] [address] [facility] [address] [place] [address] Referring Physician Obstetrics and Gynecology 12/02/22
== END 2025-01-29 10:05 | disposition home or self-care (01) ==
PROVIDERS: PCP Nurse Practitioner Adult Health; Visit Provider Nurse Practitioner Adult Health
DX: M85.88 Other specified disorders of bone density and structure, other site (principal)
CPT/HCPCS: 77080